=== PATIENT | female | born 1935 | race Caucasian/White ===

== ENCOUNTER 2018-08-10 16:33 | Emergency (ER) | payer MEDICARE, OTHER ==
[~2018-08-10] VITALS: Ht 162.6 cm; Wt 68.2 kg
[2018-08-10 16:39] VITALS: Ht 162.6 cm; Wt 68.2 kg
[2018-08-10] MEDS ORDERED: LISINOPRIL2.5 MG PO (16:42)
[2018-08-10] MEDS ORDERED: ALEVE220 MG PO (16:43)
[2018-08-10 16:58] LABS: BASOPHILS 0.1 % (0-2); EOSINOPHILS 0 % (0-7); HEMATOCRIT 40.8 % (36.0-48.0); IMMATURE GRANULOCYTES 0.2 % (0-5); LYMPHOCYTES 4.6 % (15-50); MCH 30.6 pg (26.0-34.0); MCHC 34.3 g/dL (31.0-37.0); MCV 89.1 fL (80.0-100.0); MEAN PLATELET VOLUME 9.7 fL (7.4-10.4); MONOCYTES 6.4 % (2-11); NEUTROPHILS 88.7 % (40-80); PLATELET COUNT 272 10x3/uL (130-400); RBC 4.58 10x6/uL (4.00-5.40); RDW 12.6 % (11.5-14.5); WBC 15.1 10x3/uL (4.8-10.8)
[2018-08-10 17:12] LABS: BILIRUBIN - TOTAL 0.7 mg/dL (0.2-1.3); CALCIUM 9.5 mg/dL (8.5-10.1); CARBON DIOXIDE 26.3 mmol/L (21.0-32.0); CREATININE - SERUM 0.8 mg/dL (0.6-1.3); POTASSIUM - SERUM 3.3 mmol/L (3.5-5.1); PROTEIN - SERUM 7.7 g/dL (6.4-8.2)
[2018-08-10 19:08] LABS: APPEARANCE CLEAR (CLEAR); BILIRUBIN NEGATIVE (NEGATIVE); COLOR YELLOW (YELLOW); GLUCOSE NEGATIVE (NEGATIVE); KETONE MODERATE mg/dL (NEGATIVE); NITRITE NEGATIVE (NEGATIVE); PROTEIN NEGATIVE (NEGATIVE); SPECIFIC GRAVITY 1.015 (1.005-1.020); UROBILINOGEN NORMAL (NORMAL)
[2018-08-10] MEDS ORDERED: FLAGYL500 MG PO (20:27)
[2018-08-10] MEDS ORDERED: LEVOFLOXACIN500 MG PO (20:27)
[2018-08-10 20:54] VITALS: BP 151/84
== END 2018-08-10 20:54 | disposition home or self-care (01) ==
LOC: D.ER 16:33
PROVIDERS: Emergency Medicine
DX: R10.32 Left lower quadrant pain (principal); R19.7 Diarrhea, unspecified

== ENCOUNTER → 2018-08-13 09:21 | Outpatient (CLI) | payer MEDICARE, OTHER ==
[2018-08-10 16:39] VITALS: BMI 25.8
[~2018-08-13 09:21] MED LIST: ALEVE220 MG PO; FLAGYL500 MG PO; LEVOFLOXACIN500 MG PO; LISINOPRIL2.5 MG PO
== END | disposition home or self-care (01) ==
LOC: D.CT 09:21
PROVIDERS: ATTEND Family Medicine
DX: K57.93 Diverticulitis of intestine, part unspecified, without perforation or abscess with bleeding (principal); K62.5 Hemorrhage of anus and rectum

== ENCOUNTER 2018-12-05 11:45 | Emergency (ER) | payer MEDICARE, OTHER ==
[~2018-12-05] VITALS: Ht 162.6 cm; Wt 61.4 kg
[2018-12-05 11:54] VITALS: Ht 162.6 cm; Wt 61.4 kg
[2018-12-05 12:43] LABS: APPEARANCE CLEAR (CLEAR); BILIRUBIN NEGATIVE (NEGATIVE); COLOR STRAW (YELLOW); GLUCOSE NEGATIVE (NEGATIVE); KETONE NEGATIVE (NEGATIVE); NITRITE NEGATIVE (NEGATIVE); PROTEIN NEGATIVE (NEGATIVE); SPECIFIC GRAVITY 1.005 (1.005-1.020); UROBILINOGEN NORMAL (NORMAL)
[2018-12-05] MEDS ORDERED: HYDROCODONE-A1 UDTA2 PO (13:36)
[2018-12-05 13:56] VITALS: BP 148/80
== END 2018-12-05 13:58 | disposition home or self-care (01) ==
LOC: D.ER 11:45
PROVIDERS: Emergency Medicine
DX: R10.2 Pelvic and perineal pain (principal); R30.0 Dysuria; Z91.81 History of falling

== ENCOUNTER → 2018-12-15 09:43 | Outpatient (CLI) | payer MEDICARE, OTHER ==
[2018-12-05 11:54] VITALS: BMI 23.2
[~2018-12-15 09:43] MED LIST changes: +HYDROCODONE-A1 UDTA2 PO
== END | disposition home or self-care (01) ==
LOC: D.NM 09:43
PROVIDERS: ATTEND Family Medicine
DX: S32.10XA Unspecified fracture of sacrum, initial encounter for closed fracture (principal)

== ENCOUNTER 2019-03-10 11:47 | Outpatient (CLI) | payer MEDICARE, OTHER ==
[~2019-03-10] VITALS: Ht 162.6 cm; Wt 59.1 kg
[2019-03-10 12:44] VITALS: BP 156/73; Ht 162.6 cm; Wt 59.1 kg
--- NOTE | 2019-03-10 13:09 | NUR ---
INJECTION GIVEN IN LEFT ARM. DISCHARGE INSTRUCTIONS PROVIDED. INITIAL INJECTION, TOLERATED WELL.
== END 2019-03-10 13:10 | disposition home or self-care (01) ==
LOC: D.OPS 11:47
PROVIDERS: ATTEND Family Medicine
DX: M81.0 Age-related osteoporosis without current pathological fracture (principal)